=== PATIENT | male | born 1980 | race Caucasian/White ===

== ENCOUNTER 2021-12-15 11:07 | Outpatient (REF) | payer MEDICAID, SELFPAY ==
[2021-12-17 11:36] LABS: COVID-19 RT-PCR UVMMC Result Negative (Negative)
== END 2021-12-15 11:08 | disposition home or self-care (01) ==
LOC: LBN 11:07
PROVIDERS: PCP Nurse Practitioner Family; Visit Provider Physician Assistant Medical
DX: Z20.822 Contact with and (suspected) exposure to COVID-19 (principal); J02.9 Acute pharyngitis, unspecified
CPT/HCPCS: U0003; 87070

== ENCOUNTER 2021-12-30 16:40 | Outpatient (REF) | payer MEDICAID, SELFPAY ==
[2021-12-30 19:34] LABS: ALT 25 U/L (16-63); AST 26 U/L (15-37); Albumin 3.9 g/dL (3.4-5.0); Alkaline Phosphatase 66 U/L (46-116); Anion Gap 6.1 mmol/L (3-11); BUN 19 mg/dL (7-18); Bilirubin, Total 0.5 mg/dL (0.2-1.0); CO2 28.9 mmol/L (21.0-32.0); CREATININE 1.1 mg/dL (0.70-1.30); Calcium 8.9 mg/dL (8.5-10.1); Calculated LDL 76 mg/dL (<100); Chloride 105 mmol/L (98-107); Cholesterol 161 mg/dL (<200); Estimated GFR 86.49 (mL/min/1.73m2); Glucose 97 mg/dL (74-106); HDL Cholesterol 68 mg/dL (40-60); Potassium 4.5 mmol/L (3.5-5.1); Sodium 140 mmol/L (136-145); Total Protein 7.6 g/dL (6.4-8.2); Triglyceride 88 mg/dL (<150)
[2021-12-30 19:52] LABS: Vitamin D 25 Total 20.3 ng/mL (30-100)
== END 2021-12-30 16:41 | disposition home or self-care (01) ==
LOC: NCHCN 16:40
PROVIDERS: PCP Nurse Practitioner Family; Visit Provider Nurse Practitioner Family
DX: Z13.220 Encounter for screening for lipoid disorders (principal); Z13.228 Encounter for screening for other metabolic disorders; Z13.21 Encounter for screening for nutritional disorder
CPT/HCPCS: 80053; 80061; 82306

== ENCOUNTER → 2022-01-09 01:07 | Outpatient (CLI) | payer MEDICAID, SELFPAY ==
--- NOTE | 2022-01-09 14:20 | DI.RAD_ITS ---
Exam(s) XR FOOT LT COMPLETE EXAM: XR FOOT LT COMPLETE CLINICAL HISTORY: LT FOOT PAIN, M79.672, HEEL PAIN, CHECK FOR HEEL SPUR. TECHNIQUE: 2D digital imaging was performed. Three views. COMPARISON: No exams were available for comparison FINDINGS: BONES: No acute fracture is present. No bony destructive lesion is seen. Tiny heel spur. JOINTS: No dislocation present. Minimal degenerative changes talonavicular joint. SOFT TISSUE: Normal. IMPRESSION: Minimal degenerative changes. Tiny heel spur. DATA REPOSITORY: RADIATION DOSE DELIVERED:
== END ==
PROVIDERS: PCP Nurse Practitioner Family; Visit Provider Nurse Practitioner Family
DX: M19.072 Primary osteoarthritis, left ankle and foot (principal)
CPT/HCPCS: 73630

== ENCOUNTER 2022-01-24 09:55 | Emergency (ER) | payer MEDICAID, SELFPAY ==
[2022-01-24 10:02] VITALS: BP 123/85; PULSE 102; RESP 18; TEMP 36.9; O2SAT 98
[2022-01-24] MEDS: Ketorolac 15 MG/ML VIAL IVP (10:29)
[2022-01-24] MEDS: Dexamethasone 10 MG/ML VIAL IVP (10:30)
[2022-01-24 10:32] LABS: Abs Immature Grans 0.02 10^3/uL (0.0-0.06); Absolute Basophil Count 0.04 10^3/uL (0.0-0.2); Absolute Eosinophil Count 0.09 10^3/uL (0.0-0.7); Absolute Lymphocyte Count 0.87 10^3/uL (1.2-3.4); Absolute Monocyte Count 0.55 10^3/uL (0.1-0.8); Absolute Neutrophil Count 5.68 10^3/uL (1.2-6.7); Basophils % 0.6; Eosinophils % 1.2; HCT 46.2 % (40.0-50.0); HGB 16.1 g/dL (13.5-17.5); Immature Grans % 0.3; MCHC 34.8 % (32.0-36.0); MCV 89 fL (80-95); MPV 8.4 fL (8.0-11.0); Monocytes % 7.6; Neutrophils % 78.3; Platelet Count 156 10^3/uL (130-400); RDW 11.4 % (11.8-14.1); RDW-SD 36.5 fL; WBC 7.25 10^3/uL (4.4-10.8)
[2022-01-24 10:43] LABS: Mono Screening Negative (Negative)
--- NOTE | 2022-01-24 10:43 | DI.CT_ITS ---
Exam(s) CT NECK W EXAM: CT NECK W CLINICAL HISTORY: significant edema throat. TECHNIQUE: Imaging Protocol: Axial computed tomography images with coronal and sagittal reformatted images were created and reviewed. CONTRAST MATERIAL: Intravenous: Omnipaque 350 Contrast volume:100mL COMPARISON: No exams were available for comparison FINDINGS: Orbits and orbital soft tissues: Within normal limits. Visualized paranasal sinuses: Within normal limits. Nasopharynx: Within normal limits. Oropharynx and hypopharynx: There is enlargement of the left tonsils. No calcification is identified . No drainable fluid collection is seen. The soft tissue swelling extends inferiorly into the hypop harynx with a face mint of the left piriform sinuses and vallecula. Larynx: Within normal limits. Retropharyngeal space: Within normal limits. Parotids/submandibular: Within normal limits. Thyroid gland: Within normal limits. Lymphadenopathy: There is scattered lymph nodes seen along the level one to level three all measurin g less than 8 mm in short axis diameter which are physiologic in nature. Trachea: There is mild narrowing of the airway at the level of the marlene and hypopharynx secondary to t he enlarged tonsillar tissue. Lung apices: Within normal limits. Bones: Within normal limits for the patient's age. Carotids/Jugular: Within normal limits. Soft tissues: There is mild inflammatory stranding seen in the left neck inferior to the parotid gl and and adjacent to the submandibular gland. No focal fluid collection is seen to suggest an abscess . IMPRESSION: 1. Findings suggestive of a left tonsillitis. No drainable fluid collection is identified. This lópez s result in mild narrowing of the airway. 2. Findings were discussed with Soni Gale at 11:13 a.m. on 01/24/2022. RADIATION DOSE DELIVERED: 881.4mGy.cm Total DLP 881.4mGy.cm Total DLP DATA REPOSITORY: All CT scans at this facility are submitted to the National Radiology Data Registry (NRDR) Dose Index Registry (DIR) with the [employer] (A[employer]). RADIATION OPTIMIZATION: All CT scans at this facility use at least one of these dose optimization te chniques: automated exposure control; mA and/or kV adjustment per patient size (includes targeted exa ms where dose is matched to clinical indication); or iterative reconstruction.
[2022-01-24 10:58] LABS: ALT 23 U/L (16-63); AST 21 U/L (15-37); Albumin 3.9 g/dL (3.4-5.0); Alkaline Phosphatase 84 U/L (46-116); BUN 20 mg/dL (7-18); Bilirubin, Total 1.4 mg/dL (0.2-1.0); Calcium 8.6 mg/dL (8.5-10.1); Chloride 101 mmol/L (98-107); Estimated GFR 96.97 (mL/min/1.73m2); Glucose 111 mg/dL (74-106); Potassium 3.8 mmol/L (3.5-5.1); Sodium 137 mmol/L (136-145)
[2022-01-24] MEDS: Lactated Ringers 1,000 ML 1000 ML IV (11:00)
[2022-01-24] MEDS: Normal Saline - Diluent 50 ML VIAL IV (11:00)
[2022-01-24] MEDS: Omnipaque 350 MG/ML 100 ML BTL IJ (11:00)
--- NOTE | 2022-01-24 11:33 | ED.GENADUL_ITS ---
Discharge Plan Disposition Patient Disposition: Home Condition: Stable Discharge Details Clinical Impression: Acute tonsillitis Primary Care Provider: Deidra Belle ED Provider: Soni Gale Home Meds and New Rx's Prescriptions: New dexamethasone 4 mg tablet 4 mg PO DAILY Qty: 4 0RF Rx Instructions: take daily starting 12/ Continued albuterol sulfate [ProAir HFA] 90 mcg/actuation Hfa Aerosol Inhaler 2 puff INHALATION PRN PRN No Action clindamycin HCl 150 mg capsule 450 mg PO TID 5 Days Qty: 45 0RF Discharge Instructions Additional Instructions: Take steroids as prescribed, take your next dose of steroid tomorrow Take ibuprofen 600 mg every 8 hours with food and Tylenol 650 mg every 4-6 hours Smooth foods and regular fluids to stay hydrated Take clindamycin as prescribed, yogurt daily while on antibiotic I placed you on the ENT list for follow-up, please follow-up with Dr. Quintana if you do not hear from them tomorrow, call to schedule an appointment and return earlier should you have new or worsening complaints Referrals: Deidra Belle [Primary Care Provider] - Ibrahima Quintana MD [ [facility] STAFF PHYSICIAN] - 1 day Discharge Data Discharge Date/Time-TO BE ENTERED AT DEPARTURE: 01/24/22 11:49 Medical Decision Making 41-year-old male with sick significant peritonsillar edema without obvious abscess and patent airway, will order CT soft tissue neck secondary to globus sensation with edema to the peritonsillar region to evaluate for any sort of airway compromise Given Decadron, antibiotics Labs ordered to evaluate for leukocytosis or dehydration, negative for acute abnormality CT soft tissue neck discussed with radiologist, no evidence of obvious airway impingement Patient is feeling marked improvement after steroids and pain medication At this point I think he stable for discharge home, he will need ENT follow-up secondary to recurrent significant tonsillitis Discharged home on antibiotics and steroids Medical Records Medical records reviewed: Yes I reviewed the patient's medical records. Lab Data Lab results reviewed: Yes I reviewed the patient's lab results. Sign Out No HPI General Date/Time Provider Initiated Documentation: 01/24/22 10:06 . HPI Narrative: otherwise healthy 41-year-old male presents with sore throat and difficulty swallowing. Symptoms started last evening. Denies any fever or chills. Denies any allergic reaction signs or symptoms. States he had a similar episode 4 years ago but has not had any issues since that time. This morning felt globus sensation. Was able to maintain secretions per patient. Denies any other respiratory symptoms. Related Data Home Medications Medication Instructions Recorded Confirmed albuterol sulfate 90 mcg/actuation 2 puff inhalation PRN PRN 01/24/22 01/25/22 aerosol inhaler (ProAir HFA) dexamethasone 4 mg tablet 4 mg PO DAILY #4 tabs 01/24/22 01/25/22 clindamycin HCl 150 mg capsule 450 mg PO TID 5 days #45 caps 01/25/22 01/25/22 Previous Rx's Medication Instructions Recorded dexamethasone 4 mg tablet 4 mg PO DAILY #4 tabs 01/24/22 clindamycin HCl 150 mg capsule 450 mg PO TID 5 days #45 caps 01/25/22 Allergies Allergy/AdvReac Type Severity Reaction Status Date / Time No Known Allergies Allergy Unverified 01/25/22 10:30 General Stated Complaint: Sorethroat ANITA: 4 Review of Systems All systems reviewed & are unremarkable except as noted in HPI and below PFSH All Active Problems Acute tonsillitis (Acute) Surgical History (Updated 01/25/22 @ 10:31 by Renetta Madsen RN) Hx of wisdom tooth extraction Social History (Updated 01/25/22 @ 10:32 by Renetta Madsen RN) Smoking/Tobacco Use Status: Former Tobacco Use Smokeless tobacco user: chewing tobacco Smoking risk assessment performed?: Yes Alcohol Intake: current Alcohol Intake frequency: a few times a week Drug use: Never Household members: children 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 Pets and animals: No What is your relationship status?: Panel score (0-1 are the most socially isolated patients): 0 Do you feel safe at home: Yes Do you feel safe in your relationship?: Yes Exam Const General: cooperative, comfortable and no acute distress Orientation: alert and oriented x3 HENMT Other: Uvula midline, significant peritonsillar edema bilaterally without obvious abscess, maintaining secretions Eyes Sclera: sclerae normal Neck Other: No stridor Resp Effort & Inspection: normal respiratory effort Auscultation: clear to auscultation bilaterally Cardio Rate: regular rate Rhythm: regular rhythm Skin General skin exam: no rashes or lesions noted Neuro General: patient alert Course Vital Signs Vital signs: Vital Signs Temperature 36.9 C 01/24/22 10:02 Pulse 102 H 01/24/22 10:02 Respiratory Rate 18 01/24/22 10:02 Blood Pressure 123/85 01/24/22 10:02 Pulse Oximetry 98 01/24/22 10:02 Temperature 36.9 C 01/24/22 10:02 Pulse 102 H 01/24/22 10:02 Respiratory Rate 18 01/24/22 10:02 Respiratory Effort Non-Labored 01/24/22 10:06 Blood Pressure 123/85 01/24/22 10:02 Blood Pressure Position Sitting 01/24/22 10:02 Pulse Oximetry 98 01/24/22 10:02 Oxygen Delivery Method Room Air 01/24/22 10:02 Oxygen Flow Rate 0 01/24/22 10:02 Lab/Test Results Lab/Test Results: 01/24/22 10:00 Pharynx Group A Streptococcus Culture - Pending Laboratory Tests Range/Units 01/24/22 01/24/22 01/24/22 10:25 10:25 10:25 WBC (4.4-10.8) 10^3/uL 7.25 RBC (4.36-5.78) 10^6/uL 5.20 Hgb (13.5-17.5) g/dL 16.1 Hct (40.0-50.0) % 46.2 MCV (80-95) fL 89 MCH (27.0-33.0) pg 31.0 MCHC (32.0-36.0) % 34.8 RDW (11.8-14.1) % 11.4 L Plt Count (130-400) 10^3/uL 156 MPV (8.0-11.0) fL 8.4 Immature Gran % 0.3 Neutrophils % 78.3 Lymphocytes % 12.0 Monocytes % 7.6 Eosinophils % 1.2 Basophils % 0.6 Nucleated RBC % (0.0-0.3) % 0.0 Absolute Neutrophils (1.2-6.7) 10^3/uL 5.68 Absolute Lymphocytes (1.2-3.4) 10^3/uL 0.87 L Absolute Monocytes (0.1-0.8) 10^3/uL 0.55 Absolute Eosinophils (0.0-0.7) 10^3/uL 0.09 Absolute Basophils (0.0-0.2) 10^3/uL 0.04 Sodium (136-145) mmol/L 137 Potassium (3.5-5.1) mmol/L 3.8 Chloride (98-107) mmol/L 101 Carbon Dioxide (21.0-32.0) mmol/L 31.0 Anion Gap (3-11) mmol/L 5.0 BUN (7-18) mg/dL 20 H Creatinine (0.70-1.30) mg/dL 1.0 Est GFR (CKD-EPI 2020) (mL/min/1.73m2) 96.97 Glucose (74-106) mg/dL 111 H Calcium (8.5-10.1) mg/dL 8.6 Total Bilirubin (0.2-1.0) mg/dL 1.4 H AST (15-37) U/L 21 ALT (16-63) U/L 23 Alkaline Phosphatase (46-116) U/L 84 Total Protein (6.4-8.2) g/dL 8.0 Albumin (3.4-5.0) g/dL 3.9 Monoscreen (Negative) Negative POC Strep Test-SHIMON(Rapid) Start: 01/24/22 10:10 Freq: .Rapid Strep Test Status: Active Protocol: Document 01/24/22 10:20 CELSO (Rec: 01/24/22 10:20 CELSO [id number]) Strep test-SHIMON(Rapid)-POC POC-Strep test-SHIMON (Rapid) Negative POC-Strep test-SHIMON (Rapid) Negative
[2022-01-24 11:47] VITALS: BP 131/86; PULSE 85; RESP 16; TEMP 36.7; O2SAT 98
--- NOTE | 2022-01-24 12:11 | NUR.NOTE ---
Nursing Note: Referral faxed to [facility] for tonsillitis within 1 week.
== END 2022-01-24 11:49 | disposition home or self-care (01) ==
PROVIDERS: Emergency Provider Physician Assistant; PCP Nurse Practitioner Family
DX: J03.90 Acute tonsillitis, unspecified (principal)
CPT/HCPCS: 70491; 80053; 87880; 96361; 96374; 96375; 99285; 85025; 86308; 87081; 99284; J1100; J1885; J3490

== ENCOUNTER 2022-10-18 14:28 | Emergency (ER) | payer SELFPAY ==
[2022-10-18 14:32] VITALS: BP 157/108; PULSE 104; RESP 20; TEMP 37; O2SAT 99
--- NOTE | 2022-10-18 15:12 | ED.GENADUL_ITS ---
Discharge Plan Disposition Patient Disposition: Home Condition: Stable Discharge Details Clinical Impression: Spasm of thoracic back muscle Primary Care Provider: Deidra Belle ED Provider: Jaspal Jones Home Meds and New Rx's Prescriptions: New diazepam [Valium] 5 mg tablet 5 mg PO BID PRNQty: 5 0RF Continued albuterol sulfate [ProAir HFA] 90 mcg/actuation Hfa Aerosol Inhaler 2 puff INHALATION PRN PRN Discharge Instructions Instructions: Muscle Spasm (ED) Additional Instructions: Please take ibuprofen over the counter. Take 600mg by mouth every 6 hours as needed for pain. Please take Valium only if needed for muscle spasm. Avoid activities that worsen pain. Please contact your primary care physician to arrange follow-up. Return to the ER immediately for any worsening or new concerning symptoms. Stand Alone Forms: Work Release Referrals: Deidra Belle [Primary Care Provider] - Discharge Data Discharge Date/Time-TO BE ENTERED AT DEPARTURE: 10/18/22 15:56 Medical Decision Making 42-year-old male here with back spasm. Patient hemodynamically stable. Neuro intact. Patient was given Toradol IM, lidocaine patch, and Valium. He was reassessed and symptoms significant improved. Usual customary discharge instructions reviewed the patient. I encouraged him to return immediately for any worsening or new concerning symptoms. HPI General Mode of arrival: ambulatory . Date/Time Provider Initiated Documentation: 10/18/22 14:37 . Limitations to Documentation: no limitations . Information obtained by: patient . HPI Narrative: 42-year-old male presents with chief complaint of back spasm. Patient notes spasm in his right posterior upper back that is severe. Patient notes he has been performing physical work that has resulted in this spasm. He has no associated numbness or tingling. Related Data Home Medications Medication Instructions Recorded Confirmed albuterol sulfate 90 mcg/actuation 2 puff inhalation PRN PRN 01/24/22 10/18/22 aerosol inhaler (ProAir HFA) diazepam 5 mg tablet (Valium) 5 mg PO BID PRN #5 tabs 10/18/22 Previous Rx's Medication Instructions Recorded diazepam 5 mg tablet (Valium) 5 mg PO BID PRN #5 tabs 10/18/22 Allergies Allergy/AdvReac Type Severity Reaction Status Date / Time No Known Allergies Allergy Unverified 10/18/22 14:37 General Stated Complaint: Orthopedic ANITA: 4 Review of Systems Constitutional Constitutional: Denies fever(s) Musculoskeletal Musculoskeletal: Reports as per HPI PFSH All Active Problems (Updated 10/18/22 @ 15:48 by Jaspal Jones MD) Spasm of thoracic back muscle (Acute) Surgical History (Updated 01/25/22 @ 10:31 by Renetta Madsen RN) Hx of wisdom tooth extraction Social History (Updated 01/25/22 @ 10:32 by Renetta Madsen RN) Smoking/Tobacco Use Status: Former Tobacco Use Smokeless tobacco user: chewing tobacco Smoking risk assessment performed?: Yes Alcohol Intake: current Alcohol Intake frequency: a few times a week Drug use: Never Household members: children 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 Pets and animals: No What is your relationship status?: Panel score (0-1 are the most socially isolated patients): 0 Do you feel safe at home: Yes Do you feel safe in your relationship?: Yes Exam Const General: cooperative and no acute distress HENMT Mouth: moist mucous membranes Resp Auscultation: clear to auscultation bilaterally, no rales, no rhonchi and no wheezes Cardio Rate: regular rate and not tachycardic Rhythm: regular rhythm GI Palpation: soft and nontender Back/Spine/Pelvis Back: No warmth, No ecchymosis and back tenderness (Right trapezius) Skin General skin exam: no rashes or lesions noted Neuro General: patient alert, patient awake and tone normal Psych Appearance: grossly normal Mental Status: mental status grossly normal Speech and Movement: speech and movement normal Course Vital Signs Vital signs: Vital Signs Temperature 37.0 C 10/18/22 14:32 Pulse 104 H 10/18/22 14:32 Respiratory Rate 10/18/22 14:32 Blood Pressure 157/108 H 10/18/22 14:32 Pulse Oximetry 99 10/18/22 14:32 Temperature 37.0 C 10/18/22 14:32 Temperature Source Oral 10/18/22 14:32 Pulse 104 H 10/18/22 14:32 Respiratory Rate 20 10/18/22 14:32 Blood Pressure 157/108 H 10/18/22 14:32 Blood Pressure Position Sitting 10/18/22 14:32 Pulse Oximetry 99 10/18/22 14:32 Oxygen Delivery Method Room Air 08/30/23 14:32 Oxygen Flow Rate 0 10/18/22 14:32 Pain Level 7 10/18/22 14:32
[2022-10-18] MEDS: Ketorolac 30 MG/ML VIAL IM (15:37)
[2022-10-18] MEDS: diazePAM 5 MG TAB PO (15:37)
[2022-10-18] MEDS: Lidocaine 5% Patch 1 PATCH TP (15:38)
[2022-10-18 15:55] VITALS: BP 135/107
== END 2022-10-18 15:56 | disposition home or self-care (01) ==
PROVIDERS: Emergency Provider Student in an Organized Health Care Education/Training Program; PCP Nurse Practitioner Family
DX: M62.830 Muscle spasm of back
CPT/HCPCS: 96372; 99284; 99283; J1885

== ENCOUNTER → 2023-02-06 13:01 | Outpatient (CLI) | payer OTHER, SELFPAY ==
--- NOTE | 2023-02-06 12:36 | DI.RAD_ITS ---
Exam(s) XR RIBS LT W PA LAT CHEST EXAM: XR RIBS LT W PA LAT CHEST CLINICAL HISTORY: TRAUMA,FELL,LT SIDED PAIN WITH DEEP INSPIRATION,S20.212A. TECHNIQUE: 2D digital imaging was performed. COMPARISON: No exams were available for comparison FINDINGS: Seven views: There is fracture in the lateral aspect of the left 7th rib. No evidence of lung contusion or pneumothorax and no pleural effusion. Lungs are clear bilaterally. Heart size normal no widening or shift of the mediastinum. IMPRESSION: Minimally displaced left 7th rib fracture. No pulmonary findings. DATA REPOSITORY: RADIATION DOSE DELIVERED:
== END ==
PROVIDERS: PCP Nurse Practitioner Family; Visit Provider Nurse Practitioner Family
DX: S22.32XA Fracture of one rib, left side, initial encounter for closed fracture (principal); X58.XXXA Exposure to other specified factors, initial encounter
CPT/HCPCS: 71046; 71100

== ENCOUNTER → 2023-03-05 16:04 | Outpatient (CLI) | payer OTHER, SELFPAY ==
--- NOTE | 2023-03-05 15:02 | DI.RAD_ITS ---
Exam(s) XR RIBS ONLY LT EXAM: XR RIBS ONLY LT CLINICAL HISTORY: Nondisplaced lt 7th rib fx on x-ray 02/06/23,S22.32XD; reassess for healing. COMPARISON: CR XR RIBS LT W PA LAT CHEST from 02/06/2023 TECHNIQUE: Four views of the ribs were performed. FINDINGS: LUNGS: Clear. No pneumothorax is seen. No infiltrate or effusion. HEART: Normal in size. BONES: No displaced rib fracture is seen. The previously noted distal 7th rib fracture is not visibl e on the current exam. Indicate some healing versus technique.. No bony destructive lesion is seen. The spine is grossly intact. IMPRESSION: No rib fracture is visible.
== END ==
PROVIDERS: PCP Nurse Practitioner Family; Visit Provider Nurse Practitioner Family
DX: S22.32XD Fracture of one rib, left side, subsequent encounter for fracture with routine healing (principal); X58.XXXD Exposure to other specified factors, subsequent encounter
CPT/HCPCS: 71100

== ENCOUNTER → 2023-03-12 19:16 | Outpatient (CLI) | payer OTHER, SELFPAY ==
--- NOTE | 2023-03-12 11:24 | DI.RAD_ITS ---
Exam(s) XR CHEST 2V PA LATERAL EXAM: XR CHEST 2V PA LATERAL CLINICAL HISTORY: RESPIRATORY TRACT INFECTION J98.8 TECHNIQUE: 2D digital imaging was performed. COMPARISON: CR XR RIBS LT W PA LAT CHEST from 02/06/2023 CR XR RIBS ONLY LT from 03/05/2023 FINDINGS: HEART: Normal size. Aorta: Not dilated. PULMONARY VASCULATURE: Normal. LUNGS: Clear. PLEURAL SPACE: No pleural effusion or pneumothorax. BONE:Unremarkable for age. Soft tissues: Unremarkable. IMPRESSION: No acute abnormality. DATA REPOSITORY: RADIATION DOSE DELIVERED:
== END ==
PROVIDERS: PCP Nurse Practitioner Family; Visit Provider Nurse Practitioner Family
DX: J98.8 Other specified respiratory disorders (principal)
CPT/HCPCS: 71046

== ENCOUNTER 2023-03-15 04:46 | Observation (INO) | payer OTHER, SELFPAY ==
[2023-03-15] VITALS (151 sets, daily range): BP systolic 102–177; BP diastolic 56–132; PULSE 89–134; RESP 2–78; TEMP 36.2–38.5; O2SAT 92–99
--- NOTE | 2023-03-15 04:45 | RT.EKG_ITS ---
APPROVED REPORT Exam: Resting ECG Reason for Exam: SOB Patient Location: E HR:116 bpm ECG Measurements Heart Rate 116 AXIS WV 136 P 50 QRSd 99 QRS 1 QT 329 T 37 QTc 458 Conclusion Sinus tachycardia...rate> [address] segment or T wave abnormalities to suggest occluisve CO
--- NOTE | 2023-03-15 05:02 | ED.GENADUL_ITS ---
HPI General Mode of arrival: ambulatory . Date/Time Provider Initiated Documentation: 03/15/23 04:51 . Limitations to Documentation: no limitations . Information obtained by: patient . HPI Narrative: 43yo M with hx of asthma (uses inhaler only when sick), fall 5 weeks ago with left sided rib fractures, presenting for persistent URI symptoms. For last 10 days has had cough, rhinorhea, and sore throat. Febrile for the first several days, now temps 99-100.0F. Cough is bothersome and keeping him awake despite home OTC medications & tessalon pearls. Saw his PCP on Sunday and had a chest xray, repeat appointment scheduled for next Sunday. Presents this morning for concern that his symptoms hae not yet improved. Does have continues left sided rib pain and tenderness especially with coughing. No chills, rash, vomiting, chest pain, abdominal pain, syncope, or other concerns. Related Data Home Medications Medication Instructions Recorded Confirmed albuterol sulfate 90 mcg/actuation 2 puff inhalation PRN PRN 01/24/22 03/15/23 aerosol inhaler (ProAir HFA) benzonatate 100 mg capsule mg PO 03/15/23 Allergies Allergy/AdvReac Type Severity Reaction Status Date / Time No Known Allergies Allergy Unverified 03/15/23 05:03 General Stated Complaint: Chest/Rib ANITA: 3 Review of Systems Narrative: see HPI Exam Narrative Exam Narrative: General: Alert, well appearing, well nourished, in no acute distress. Head: Normocephalic, atraumatic Neck: Trachea midline, ?Neck supple. ENT: ?MMM.? No oropharygeal lesions or exudate. Cardiac: ?RRR, no murmurs appreciated Resp: No respiratory distress. Diffuse expiratory wheezes. Abd: ?Soft, non-distended, nontender : ?No suprapubic tenderness. No CVA tenderness. Extremities: ?No deformities.? No peripheral edema. Neurologic: GCS 15. ? Moves all extremities freely against gravity Course Vital Signs Vital signs: Vital Signs Temperature 36.8 C 03/15/23 04:50 Pulse 120 H 03/15/23 04:50 Respiratory Rate 03/15/23 04:50 Blood Pressure 137/89 03/15/23 04:50 Pulse Oximetry 98 03/15/23 04:50 Temperature 36.8 C 03/15/23 04:50 Pulse 120 H 03/15/23 04:50 Respiratory Rate 24 03/15/23 04:50 Respiratory Effort Normal 03/15/23 04:59 Respiratory Depth Normal 03/15/23 04:59 Respiratory Pattern Tachypnea 03/15/23 04:59 Blood Pressure 137/89 03/15/23 04:50 Blood Pressure Position Supine 03/15/23 04:50 Pulse Oximetry 98 03/15/23 04:50 Oxygen Delivery Method Room Air 03/15/23 04:50 Oxygen Flow Rate 0 03/15/23 04:50 Pain Level 7 03/15/23 04:59 Medical Decision Making 43yo M with hx of asthma (uses inhaler only when sick), fall 5 weeks ago with left sided rib fractures, presenting for persistent URI symptoms. For last 10 days has had cough, rhinorhea, and sore throat. Febrile for the first several days, now temps 99-100.0F. Saw PCP and had CXR on Sunday; repeat appointment schedule for next Sunday. Presents today concerned due to persistence of symptoms. Tachycardia on arrival, vital signs otherwise reassuring, normal O2 sat. Non-toxic on exam; does have diffuse expiratory wheezes. No increased work of breathing. Likely URI and reactive airway, however with rib fractures higher risk for pneumonia. Not overtly septic; will get labs and CXR. Toradol for rib pain, albuterol neb for wheeze. -EKG sinus tachycardia, no St segment or T wave abnormalities to suggest occlusive PA -CXR independently reviewed, no focal pneumonia or pneumothorax on my view, agree with radiology read below. -Labs reviewed as below, CBC reassuring with no leukocytosis or anemia, CMP with no actionable abnormalities, lactate normal. Resp viral swab negative for covid/flu/rsv. D-dimer elevated; CTA for PE ordered. On reassessment borderline hypoxia, sats 90-91% on room air. Positional component, does improve with more upright positioning. He does report his breathing feels much improved after albuterol neb. Will give 1L IVF. Signed out to oncoming physician, plan to followup CTA and clinical course. Disposition pending results. Lab Data Lab results reviewed: Yes I reviewed the patient's lab results. Labs: Laboratory Tests Range/Units 01/25/24 01/25/24 05:10 05:25 WBC (4.4-10.8) 10^3/uL 10.04 RBC (4.36-5.78) 10^6/uL 5.07 Hgb (13.5-17.5) g/dL 14.7 Hct (40.0-50.0) % 43.0 MCV (80-95) fL 85 MCH (27.0-33.0) pg 29.0 MCHC (32.0-36.0) % 34.2 RDW (11.8-14.1) % 11.9 Plt Count (130-400) 10^3/uL MPV (8.0-11.0) fL Immature Gran % 0.6 Neutrophils % 77.8 Lymphocytes % 8.3 Monocytes % 12.5 Eosinophils % 0.4 Basophils % 0.4 Nucleated RBC % (0.0-0.3) % 0.0 Absolute Neutrophils (1.2-6.7) 10^3/uL 7.82 H Absolute Lymphocytes (1.2-3.4) 10^3/uL 0.83 L Absolute Monocytes (0.1-0.8) 10^3/uL 1.25 H Absolute Eosinophils (0.0-0.7) 10^3/uL 0.04 Absolute Basophils (0.0-0.2) 10^3/uL 0.04 D-Dimer (<500) ng/mlFEU 715 H VBG Lactate (0.6-1.4) mmol/L 1.0 Sodium (136-145) mmol/L 138 Potassium (3.5-5.1) mmol/L 4.3 Chloride (98-107) mmol/L 99 Carbon Dioxide (21.0-32.0) mmol/L 29.5 Anion Gap (3-11) mmol/L 9.5 BUN (7-18) mg/dL 14 Creatinine (0.70-1.30) mg/dL 1.0 Est GFR (CKD-EPI 2020) (mL/min/1.73m2) 95.77 Glucose (74-106) mg/dL 123 H Calcium (8.5-10.1) mg/dL 8.6 Total Bilirubin (0.2-1.0) mg/dL 0.8 AST (15-37) U/L 25 ALT (16-63) U/L 16 Alkaline Phosphatase (46-116) U/L 68 Total Protein (6.4-8.2) g/dL 7.2 Albumin (3.4-5.0) g/dL 2.9 L COVID-19 Source Nasopharynx SARS-CoV-2 (PCR) (Negative) Negative Influenza Type A (PCR) (Negative) Negative Influenza Type B (PCR) (Negative) Negative RSV (PCR) (Negative) Negative Quality:SDOH Health Related Social Needs: No Data to Display PFSH Surgical History (Updated 01/25/22 @ 10:31 by Renetta Madsen RN) Hx of wisdom tooth extraction Social History (Updated 01/25/22 @ 10:32 by Renetta Madsen RN) Smoking/Tobacco Use Status: Former Tobacco Use Smokeless tobacco user: chewing tobacco Smoking risk assessment performed?: Yes Alcohol Intake: current Alcohol Intake frequency: a few times a week Drug use: Never Household members: children 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 Rib fractures 5 weeks ago. Tachycardia to 120's, borderline hypoxia 90-91%. Got albuterol, getting IVF. Pending CTA for PE, will need reassessment Last updated by Herminia Escamilla MD at 03/15/23 06:23 Discharge Plan Discharge Details Chief Complaint: Chest/Rib Primary Care Provider: Deidra Belle ED Provider: Herminia Escamilla Home Meds and New Rx's Prescriptions: No Action albuterol sulfate [ProAir HFA] 90 mcg/actuation Hfa Aerosol Inhaler 2 puff INHALATION PRN PRN benzonatate 100 mg capsule PO Patient Comments: TAKE ONE CAPSULE BY MOUTH AT BEDTIME NEEDED
--- NOTE | 2023-03-15 05:15 | DI.RAD_ITS ---
Exam(s) XR PORTABLE CHEST AP EXAM: XR PORTABLE CHEST AP CLINICAL HISTORY: shortness of breath TECHNIQUE: 2D digital imaging was performed of the chest. One image was obtained. An AP view was ob tained. COMPARISON: CR XR CHEST 2V PA LATERAL from 03/12/2023 FINDINGS: MEDIASTINUM: Normal. HEART: Normal. PULMONARY VASCULATURE: Normal. LUNGS: No focal consolidating infiltrates. Improved appearance of the lungs with decrease in the int erstitial infiltrates. PLEURAL SPACE: No pleural effusion or pneumothorax. BONE:Within normal limits for the patient's age. OTHER FINDINGS:Normal. IMPRESSION: Overall improvement in the appearance of the lungs with improved infiltrates. DATA REPOSITORY: RADIATION DOSE DELIVERED:
[2023-03-15] MEDS: Ketorolac 15 MG/ML VIAL IM (05:29)
[2023-03-15] MEDS: Albuterol 2.5 MG/3 ML INH SOLN VIAL UPD (05:29)
[2023-03-15 05:35] LABS: Abs Immature Grans 0.06 10^3/uL (0.0-0.06); Absolute Basophil Count 0.04 10^3/uL (0.0-0.2); Absolute Eosinophil Count 0.04 10^3/uL (0.0-0.7); Absolute Lymphocyte Count 0.83 10^3/uL (1.2-3.4); Absolute Monocyte Count 1.25 10^3/uL (0.1-0.8); Absolute Neutrophil Count 7.82 10^3/uL (1.2-6.7); Basophils % 0.4; Eosinophils % 0.4; HGB 14.7 g/dL (13.5-17.5); Immature Grans % 0.6; Lymphocytes % 8.3; MCHC 34.2 % (32.0-36.0); MCV 85 fL (80-95); Monocytes % 12.5; Neutrophils % 77.8; RBC 5.07 10^6/uL (4.36-5.78); RDW 11.9 % (11.8-14.1); RDW-SD 36.2 fL; WBC 10.04 10^3/uL (4.4-10.8)
[2023-03-15 05:55] LABS: COVID-19 PCR Negative (Negative); Influenza A PCR Negative (Negative); Influenza B PCR Negative (Negative); RSV PCR Negative (Negative)
[2023-03-15 05:55] LABS: ALT 16 U/L (16-63); AST 25 U/L (15-37); Albumin 2.9 g/dL (3.4-5.0); Alkaline Phosphatase 68 U/L (46-116); Anion Gap 9.5 mmol/L (3-11); BUN 14 mg/dL (7-18); Bilirubin, Total 0.8 mg/dL (0.2-1.0); CO2 29.5 mmol/L (21.0-32.0); Calcium 8.6 mg/dL (8.5-10.1); Chloride 99 mmol/L (98-107); Estimated GFR 95.77 (mL/min/1.73m2); Glucose 123 mg/dL (74-106); Potassium 4.3 mmol/L (3.5-5.1); Sodium 138 mmol/L (136-145); Total Protein 7.2 g/dL (6.4-8.2)
[2023-03-15 05:57] LABS: Source Nasopharynx
--- NOTE | 2023-03-15 06:00 | DI.CT_ITS ---
Exam(s) CT CHEST PE CTA EXAM: CT CHEST PE CTA CLINICAL HISTORY: SOB tachycardia elevated dimer. TECHNIQUE: Imaging Protocol: Axial CT angiography was performed with multi-slice acquisition and mu lti-planar and/or 3D reconstructions. CONTRAST MATERIAL: Intravenous: Omnipaque 350 contrast volume:100 mL COMPARISON: CT CT NECK W from 01/24/2022 CR XR RIBS ONLY LT from 03/05/2023 CR,XR XR PORTABLE CHEST AP from 03/15/2023 FINDINGS: The examination is limited due to patient motion artifact. Tracheobronchial tree: Patent where visualized. Pulmonary parenchyma: There is a multifocal bilateral reticular nodular infiltrate present. No archi tectural distortion. Pulmonary Arteries: Evaluation limited by patient motion artifact particularly involving the peripher al pulmonary arteries. No pulmonary on emboli are identified. Mediastinum and Joi: Mildly enlarged mediastinal lymph nodes. The largest is in the right paratrach eal region and measures 1.5 cm. These are likely reactive. The esophagus is unremarkable. Visualized thyroid gland: Unremarkable. Pleura: No effusion or pneumothorax. Heart: The heart is not dilated. No coronary artery calcifications are seen. No pericardial effusion. Aorta: Thoracic aorta non-dilated. No evidence of dissection. Upper abdomen: Unremarkable. Soft tissues: Unremarkable. Bones: Within normal limits for the patient's age.There are subacute/healing nondisplaced fractures i nvolving the anterior aspects of the left 3rd through 6th ribs. IMPRESSION: 1. No evidence of pulmonary embolism, thoracic aortic dissection or aneurysm. 2. Multifocal pneumonia. 3. Healing nondisplaced fractures of the anterior aspects of the left 3rd through 6th ribs. 4. Findings were discussed with Dr. Weldon at 8:06 a.m. on 03/15/2023. RADIATION DOSE DELIVERED: 637.63mGy.cm Total DLP DATA REPOSITORY: All CT scans at this facility are submitted to the National Radiology Data Registry (NRDR) Dose Index Registry (DIR) with the [employer] (ACR). RADIATION OPTIMIZATION: All CT scans at this facility use at least one of these dose optimization te chniques: automated exposure control; mA and/or kV adjustment per patient size (includes targeted exa ms where dose is matched to clinical indication); or iterative reconstruction.
[2023-03-15 06:03] LABS: D-Dimer 715 ng/mlFEU (<500)
[2023-03-15] MEDS: Normal Saline 1,000 ML 1000 ML IV (06:18)
--- NOTE | 2023-03-15 06:56 | DI.VRAD_ITS ---
PROCEDURE INFORMATION: Exam: XR Chest Exam date and time: 03/15/2023 5:25 AM Age: 43 years old Clinical indication: Shortness of breath TECHNIQUE: Imaging protocol: Radiologic exam of the chest. Views: 1 view. COMPARISON: CR XR CHEST 2V PA LATERAL 03/12/2023 11:17 AM FINDINGS: Lungs: Diffuse increased interstitial markings. Slight interval improvement of aeration of the right lung base Pleural spaces: Unremarkable. No pleural effusion. No pneumothorax. Heart/Mediastinum: Cardiac silhouette unchanged Bones/joints: Unremarkable. IMPRESSION: Slight interval improvement of aeration of the right lung base Dictated and Authenticated by: Jimena Mcneil MD. Ordering:BRYN Hope MD
[2023-03-15] MEDS: Omnipaque 350 MG/ML 500 ML BTL-Imaging package 100 ML IJ (07:50)
--- NOTE | 2023-03-15 08:26 | W.EDPROG ---
Date of service: 03/15/23 Time of Service: 08:26 Medical Decision Making Care was signed out by Dr. Escamilla, please see her documentation regarding initial ED presentation and course. Plan at signout was to follow-up on CT of the chest. CT of the chest interpreted by radiology: Healing left rib fractures numbers 3-6. No pulmonary embolism. Multifocal pneumonia. Patient reassessed and remains tachycardic despite IVF bolus. His oxygenation has improved to 95% on room air after neb treatments. Given persistent tachycardia, rib fractures, multifocal pneumonia, and asthma, plan to admit for IV antibiotics. I will initiate treatment with ceftriaxone and doxycycline IV. Quality:[facility] Health Related Social Needs: No Data to Display Sign Out Sign Out Data: Sign Out Comment: 43yo M, 10 days of URI symptoms. Rib fractures 5 weeks ago. Tachycardia to 120's, borderline hypoxia 90-91%. Got albuterol, getting IVF. Pending CTA for PE, will need reassessment Last updated by Herminia Escamilla MD at 03/15/23 06:23 Discharge Plan Disposition Condition: Good Discharge Details Chief Complaint: Chest/Rib Admit Date/Time: 03/15/23 09:44 Admit Provider: Pepito Jj Attending Provider: Pepito Jj Primary Care Provider: Deidra Belle ED Provider: Jaspal Jones Discharge Instructions Activity:: Activity as Tolerated Equipment/Supplies:: No Equipment Needed Diet:: Normal Diet Discharge Orders Discharge Orders: Discharge Order (Routine); Ordered 03/16/23 Ordered By: Pepito Jj Discharge Data Discharge Date/Time-TO BE ENTERED AT DEPARTURE: 03/15/23 15:13
[2023-03-15] MEDS: cefTRIAXone 1 GM/50 ML BAG IVPB (08:49)
[2023-03-15] MEDS: DOXYCYCLINE 100 MG in Normal Saline 100 ML IVPB (08:49)
[2023-03-15] MEDS: Normal Saline 1,000 ML 150 ML IV (08:50)
--- NOTE | 2023-03-15 09:12 | NUR.NOTE ---
pt provided with breakfast meal tray Nursing Note:
--- NOTE | 2023-03-15 13:11 | NUR.NOTE ---
lunch tray ordered for patient Nursing Note:
[2023-03-15] MEDS: Albuterol/Ipratropium 3 ML UPD VIAL UPD ×2 (16:04→20:43)
[2023-03-15] MEDS: guaiFENesin 600 MG TABCR PO (16:54)
[2023-03-15] MEDS: Esomeprazole 40 MG CAPCR PO (16:54)
[2023-03-15] MEDS: Ibuprofen 600 MG TAB PO ×2 (16:54→19:56)
[2023-03-15] MEDS: Benzonatate 200 MG CAP PO ×2 (16:55→19:56)
--- NOTE | 2023-03-15 17:05 | HPE_ITS ---
Date of service: 03/15/23 Time of Service: 17:05 Assessment and Plan Assessment and plan (1) Community acquired pneumonia of both lungs: Status: Acute Assessment and plan: Continue Rocephin 1 g IV every 24 hours, switch doxycycline oral 100 mg twice daily, continue DuoNeb treatments but increase frequency to every 4 hours while awake along with albuterol every 2 hours as needed, encourage cough and deep breathing with use of incentive spirometer and Acapella device. Provide Mucinex to help thin his secretions and Tessalon Perles to suppress paroxysms of coughing. Will obtain sputum culture as well as urine for strep antigen and urine Legionella and sputum for mycoplasma. Will use low flow nasal oxygen as needed to maintain oxygen saturation above 92%. Given his persistent bronchospasm and history of asthma will initiate steroids with IV Solu-Medrol tonight and then prednisone 40 mg daily. I put him on some GI protection with Nexium (2) Asthma: Status: Chronic Assessment and plan: As above Qualifiers: Asthma severity: mild Asthma persistence: intermittent Asthma complication type: uncomplicated Qualified Code(s): J45.20 - Mild intermittent asthma, uncomplicated (3) Multiple fractures of ribs, left side, subsequent encounter for fracture with delayed healing: Status: Acute Assessment and plan: I have put him on scheduled doses of ibuprofen to help with rib pain we will also add a Lidoderm also add a Lidoderm patch (4) DVT prophylaxis: Status: Acute Assessment and plan: Enoxaparin SC History of Present Illness History of Present Illness Chief Complaint: cough, fever, dyspnea Narrative: 43-year-old white male non-smoker with a history of asthma who has not had a history of uncontrolled asthma. As he department today with 10-day history of worsening cough that is now become productive of purulent yellow sputum over the last 3 days associated with fever and chills. Patient relates that his problems began on February 06 when he had a fall at work and sustained rib fractures on his left chest. 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 He had been given an IS and NSAIDs but over the past 10 days to two weeks has had a cough that has become progressively worse and now has fever and purulent sputum. He saw his PCP in [facility] on Sunday and was ordered a CXR which he obtained on 03/12 and this was read as not showing any acute abnormality. As his symptoms got worse this week he presented to the emergency dept this morning for evaluation. He was noted be acutely wheezing but he was not hypoxemic (SPO2 98% on room air on arrival to the ED at 04:50 am today. However, he reportedly became mildly hypoxemic info that was relayed to me by Dr. Jones but did improve w/ nebulizer treatments. Repeat CXR and a chest CTA was done which showed multifocal pneumona but no PE. Patient was started on iv Ceftriaxone 1 gm and doxycycline 100 mg IV and given DuoNeb treatments x one treatment. I have been asked by Dr. Jones to admit the patient out of his concern that patient is at risk for decompensation d/t his asthma and rib fractures causing him to splint and not provide adequate pulmonary toiletry. Patient will be admitted on observation status while he gets frequent DuoNeb treatments, steroids and parenteral antibiotics. Review of Systems All systems reviewed & are unremarkable except as noted in HPI and below PFSH All Active Problems (Updated 03/15/23 @ 17:51 by Pepito Jj MD) DVT prophylaxis (Acute) Multiple fractures of ribs, left side, subsequent encounter for fracture with delayed healing (Acute) Community acquired pneumonia of both lungs (Acute) Asthma (Chronic) Surgical History (Updated 03/15/23 @ 17:45 by Pepito Jj MD) History of laser photocoagulation of retina treatment of retinal detachment Hx of wisdom tooth extraction Social History Smoking/Tobacco Use Status: Former Tobacco Use Smokeless tobacco user: chewing tobacco Smoking risk assessment performed?: Yes Alcohol Intake: current Alcohol Intake frequency: a few times a week Drug use: Never Household members: children Housing: apartment 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) who is alert and orient x 3 in no acute distress. He is able to talk to me in complete paragraphs without dyspnea. He is nondiaphoretic. HEENT is unremarkable Neck is supple nontender no JVD normal carotid pulses no bruits no thyromegaly no adenopathy Lungs diffuse scattered bilateral expiratory wheezes anteriorly and posteriorly Heart is regular rate and rhythm Abdomen obese soft and nontender Lower extremities without peripheral cyanosis or edema Neuro exam grossly intact no focal motor deficits. Results Labs 03/15/23 05:25 03/15/23 05:25 Labs: Laboratory Results - last 24 hr 03/15/23 03/15/23 05:10 05:25 WBC 10.04 RBC 5.07 Hgb 14.7 Hct 43.0 MCV 85 MCH 29.0 MCHC 34.2 RDW 11.9 Plt Count MPV Immature Gran % 0.6 Neutrophils % 77.8 Lymphocytes % 8.3 Monocytes % 12.5 Eosinophils % 0.4 Basophils % 0.4 Nucleated RBC % 0.0 Absolute Neutrophils 7.82 H Absolute Lymphocytes 0.83 L Absolute Monocytes 1.25 H Absolute Eosinophils 0.04 Absolute Basophils 0.04 D-Dimer 715 H VBG Lactate 1.0 Sodium 138 Potassium 4.3 Chloride 99 Carbon Dioxide 29.5 Anion Gap 9.5 BUN 14 Creatinine 1.0 Est GFR (CKD-EPI 2020) 95.77 Glucose 123 H Calcium 8.6 Total Bilirubin 0.8 AST 25 ALT 16 Alkaline Phosphatase 68 Total Protein 7.2 Albumin 2.9 L COVID-19 Source Nasopharynx SARS-CoV-2 (PCR) Negative Influenza Type A (PCR) Negative Influenza Type B (PCR) Negative RSV (PCR) Negative Last Vital Signs Temp 38.5 C H 03/15/23 16:54 Pulse 115 H 03/15/23 16:08 Resp 20 03/15/23 16:04 BP 129/89 03/15/23 15:19 Pulse Ox 92 03/15/23 16:04 Time Spent Time spent with Patient: 40-54 minutes Time was spent: preparing to see the patient(eg.review tests), obtaining and/or reviewing separately otained hiistory, ordering medications,tests, procedures, referring, communicating with other health interior plant caretaker, indepentently interpreting results, counseling the patient and care coordination
[2023-03-15] MEDS: Doxycycline Hyclate 100 MG CAP PO (19:56)
[2023-03-15] MEDS: methylPREDNISolone SUCC 125 MG VIAL IVP (19:57)
[2023-03-15] MEDS: Normal Saline Flush 10 ML SYR IVP (19:57)
[2023-03-15] MEDS: Lidocaine 5% Patch 2 PATCH TP (19:58)
[2023-03-15 20:39] LABS: Platelet Count 302 10^3/uL (130-400)
[2023-03-15] MEDS: Enoxaparin 40 MG/0.4 ML SYR SC (21:12)
[2023-03-16] MEDS: Acetaminophen 325 MG TAB PO (03:00)
[2023-03-16 04:16] VITALS: PULSE 105; RESP 20; O2SAT 94
[2023-03-16] MEDS: Lidocaine Patch Removal 2 EACH TP (06:19)
[2023-03-16 06:20] VITALS: BP 127/87; PULSE 111; RESP 20; TEMP 36; O2SAT 98
[2023-03-16] MEDS: cefTRIAXone 1 GM/50 ML BAG IVPB (06:47)
[2023-03-16] MEDS: Esomeprazole 40 MG CAPCR PO (07:36)
[2023-03-16] MEDS: Normal Saline Flush 10 ML SYR IVP (07:37)
[2023-03-16] MEDS: Enoxaparin 40 MG/0.4 ML SYR SC (07:37)
[2023-03-16] MEDS: Doxycycline Hyclate 100 MG CAP PO (07:39)
[2023-03-16] MEDS: Benzonatate 200 MG CAP PO ×2 (07:40→13:32)
[2023-03-16] MEDS: Ibuprofen 600 MG TAB PO ×2 (07:40→11:15)
[2023-03-16] MEDS: guaiFENesin 600 MG TABCR PO (07:40)
[2023-03-16] MEDS: predniSONE 20 MG TAB 40 MG PO (07:42)
[2023-03-16 09:00] VITALS: PULSE 104; RESP 16; RESP 9; O2SAT 92
[2023-03-16] MEDS: Albuterol/Ipratropium 3 ML UPD VIAL UPD (09:00)
[2023-03-16 09:07] VITALS: PULSE 105
--- NOTE | 2023-03-16 13:12 | DSE_ITS ---
Date of service: 03/16/23 Time of Service: 13:13 DS: Diagnosis Discharge Diagnosis (1) Community acquired pneumonia of both lungs: Status: Acute Asessment and Plan: See H&P for details and see discharge plan below regarding follow-up. (2) Asthma: Status: Chronic (3) Multiple fractures of ribs, left side, subsequent encounter for fracture with delayed healing: Status: Acute Discharge Plan Disposition Patient Disposition: Home Condition: Good Discharge Details Reason For Visit: community aquired pneumonia, multifocal Admit Date/Time: 03/15/23 09:44 Admit Provider: Pepito Jj Attending Provider: Pepito Jj Primary Care Provider: Deidra Belle Hospital Course Hospital Course: This 43-year-old male non-smoker with a history of asthma was admitted with community-acquired pneumonia secondary to complications from multiple rib fractures sustained in a fall occurring 5 weeks ago. Current symptoms include increasing cough over the last 10 days along with fever and productive sputum over the last 3 days and chills. Outpatient chest x-ray did not show any pneumonic consolidation this was performed 3 days prior to his current admis marilee.However chest x-ray on admission suggested overall improvement in the appearance of his lungs with improvement in his infiltrates even though infiltrates were not read on his original chest x-ray from 03/12/2023. CT of his chest was performed on admission showed no pulmonary emboli and no thoracic aortic aneurysm or dissection but he has multifocal pneumonia and healing nondisplaced fractures of the anterior left third through sixth ribs. Although the patient was not hypoxic on evaluation emergency department overnight observation was advised by the ED provider. Patient was started on IV Solu- Medrol and given Rocephin and doxycycline. The next morning he was started on prednisone and will be switched to 5-day course of Levaquin. He will be discharged home to follow-up with his primary care provider next week he should complete 5 days of Levaquin 750 mg daily and prednisone 40 mg daily for 5 days. A new prescription for an albuterol inhaler was written. He should use albutero l 2 puffs every 4 hours while awake as needed for cough or dyspnea. He was also given a short-term prescription for tramadol 50 mg 4 times daily as needed chest wall pain. Repeat chest x-ray has been ordered to be done in 2 weeks. Home Meds and New Rx's Prescriptions: New tramadol 50 mg tablet 50 mg PO Q6H PRNQty: 20 0RF levofloxacin 750 mg tablet 750 mg PO DAILY 5 Days Qty: 5 0RF prednisone 20 mg tablet 40 mg PO DAILY 5 Days Qty: 10 0RF guaifenesin [Mucinex] 600 mg tablet extended release 12hr 600 mg PO BID 5 Days Qty: 10 0RF benzonatate 200 mg capsule 200 mg PO TID PRNQty: 15 0RF Changed albuterol sulfate [ProAir HFA] 90 mcg/actuation Hfa Aerosol Inhaler 2 puff INHALATION Q4H PRN PRNQty: 8.5 0RF Discharge Instructions Instructions: Levofloxacin (By mouth), Bacterial Pneumonia (DC) Stand Alone Forms: NEGATIVE COVID-19 SCREENING Referrals: Deidra Belle [Primary Care Provider] - 03/19/23 9:50 am (needs follow up in the next week, recommend follow up chest xray in 2 to 3 weeks) Activity:: Activity as Tolerated Equipment/Supplies:: No Equipment Needed Diet:: Normal Diet Discharge Orders Discharge Orders: Discharge Order (Routine); Ordered 03/16/23 Ordered By: Pepito Jj Other Ambulatory Orders: XR chest 2V PA & lateral (Routine) Timeframe: 2 Weeks Facility: [facility] - Location: DIAGNOSTIC IMAGING DEPT Ordered By: Pepito Jj DS: Summary Time Spent with Patient providing and/or coordinating discharge services: Less than 30 minutes Specific discharge activities: Interview/exam of patient; review of discharge instructions, completion of prescriptions/discharge instructions; discussion w/ nursing and CM; documentation of hospital visit Status at Discharge Functional status at discharge: independent ambulation Overall status at discharge: patient is back to baseline Mental Status: mental status grossly normal Speech and Movement: speech and movement normal Mood: congruent mood Affect: normal affect Quality:SDOH Health Related Social Needs: No Data to Display Exam Narrative Exam Narrative: Albert states he feels 100% better. Not short of breath. Cough is improved. Minimal sputum production. Chest wall pain is much better. Lungs are much improved he just has some faint end expiratory wheezes no rhonchi or rales he is moving air much better. Heart is regular rate and rhythm Extremities without edema Psych Mental Status: mental status grossly normal Speech and Movement: speech and movement normal Mood: congruent mood Affect: normal affect DS: Data Vitals/I&O Vitals and I&O: Vital Signs Temperature 36.0 C L 03/16/23 06:20 Temperature Source Tympanic 03/16/23 06:20 Pulse 105 H 03/16/23 09:07 Pulse Rhythm Regular 03/15/23 22:08 Pulse 120 H 03/15/23 15:01 Respiratory Rate 16 03/16/23 09:00 Respiratory Effort Normal, Non-Labored 03/15/23 22:08 Respiratory Depth Normal 03/15/23 22:08 Respiratory Pattern Normal 03/15/23 22:08 Blood Pressure 127/87 03/16/23 06:20 Blood Pressure Mean 116 03/15/23 15:01 Blood Pressure Position Supine 03/15/23 04:50 Pulse Oximetry 92 03/16/23 09:00 Oxygen Delivery Method Room Air 03/16/23 09:00 Oxygen Flow Rate 0 03/16/23 09:00 Pain Level 2 03/16/23 07:40 Comment pt denied pain at this time 03/16/23 06:20 Intake & Output 03/15/23 03/16/23 03/16/23 23:59 11:59 23:59 Intake Total 240 / 1390 300 / 300 Output Total 0 / 0 Balance 240 / 1390 300 / 300 Weight 120.293 kg Intake: Oral 240 / 240 300 / 300 Output: Urine 0 / 0 Stool 0 / 0 Other: Urine Color Yellow Urine Appearance Clear Voiding Methods Toilet Data Completed and Pending Labs on day of discharge: Labs from last 24 hours 03/15/23 03/15/23 03/15/23 20:30 19:17 15:54 Plt Count 302 Urine Legionella Ag Pending M. pneumoniae Source Pending M. pneumoniae (PCR) Pending Ur Strep pneumoniae Ag Pending Preliminary micro results at discharge 03/15/23 15:54 Sputum Culture - Preliminary Sputum Normal Deana PFSH All Active Problems DVT prophylaxis (Acute) Multiple fractures of ribs, left side, subsequent encounter for fracture with delayed healing (Acute) Community acquired pneumonia of both lungs (Acute) Asthma (Chronic) Surgical History History of laser photocoagulation of retina treatment of retinal detachment Hx of wisdom tooth extraction Social History Smoking/Tobacco Use Status: Former Tobacco Use Smokeless tobacco user: chewing tobacco Smoking risk assessment performed?: Yes Alcohol Intake: current Alcohol Intake frequency: a few times a week Drug use: Never Household members: children Housing: apartment 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
--- NOTE | 2023-03-16 13:16 | INITIAL_ITS ---
Date of service: 03/16/23 Time of Service: 13:16 Care Management Initial Assmt Initial Assessment REASON FOR HOSPITALIZATION:: community acquired pneumonia PREVIOUS FUNCTIONAL STATUS/SOCIAL/FAMILY SUPPORTS:: Albert lives in [place] with his ten year old son. 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 He is independent at baseline. CURRENT FUNCTIONAL STATUS:: Albert was sitting up in bed when CM met with him. He stated that he spoke with the MD, who stated that he is medically cleared for discharge. Albert is happy about this and is looking forward to going home. He stated that his son is at his grandparent's house, and he will be happy to be home with his dad later today. Albert stated that he is grateful that he recently obtained health insurance, although he has a past due bill from when he did not have insurance. CM informed him of [facility]'s patient assistance program; he stated that he already has the application and will turn it in soon. He did not identify any additional needs. CM will continue to follow. ADVANCE DIRECTIVES:: Not on file; CM will offer forms. Has patient been provided with info about the portal/API?: Yes Did the patient sign up for the portal?: No CODE STATUS:: Full Code INSURANCE COVERAGE / FINANCIAL ISSUES:: [employer] CURRENT HOME/COMMUNITY SERVICES/EQUIPMENT:: None. PRIMARY CARE PHYSICIAN:: Deidra Belle POTENTIAL DISCHARGE NEEDS:: Evaluations for further needs, follow up appointments. PATIENT/FAMILY EDUCATION NEEDS:: Review discharge instructions and limitations, discussion of self care needs including ask me three. ANTICIPATED BARRIERS TO DISCHARGE:: None. TRANSPORTATION:: Via private vehicle by a friend. PLAN:: Anticipate Albert will return home with no new services. His friend will drive him home via private vehicle. He will follow up with his PCP and discharge plan of care. CM will continue to follow. PFSH All Active Problems DVT prophylaxis (Acute) Multiple fractures of ribs, left side, subsequent encounter for fracture with delayed healing (Acute) Community acquired pneumonia of both lungs (Acute) Asthma (Chronic) Surgical History History of laser photocoagulation of retina treatment of retinal detachment Hx of wisdom tooth extraction Social History Smoking/Tobacco Use Status: Former Tobacco Use Smokeless tobacco user: chewing tobacco Smoking risk assessment performed?: Yes Alcohol Intake: current Alcohol Intake frequency: a few times a week Drug use: Never Household members: children Housing: apartment 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 Pets and animals: No What is your relationship status?: Panel score (0-1 are the most socially isolated patients): 0 Do you feel safe at home: Yes Do you feel safe in your relationship?: Yes SDOH(Care Management) Screening Will the Patient Participate in the Screening?: Yes Do you worry about having a steady place to live?: no In the past 12 months, have you had to go without electric, gas, oil or water in your home?: no Have you or anyone in your house had to go without enough food to eat?: no Has lack of transportation kept you from medical appointments or from doing things needed for daily living?: no Has anyone in your support network made you feel unsafe for any reason?: no
--- NOTE | 2023-03-16 13:39 | PDOC.CMDIS ---
Date of service: 03/16/23 Time of Service: 13:39 LACE Index Scoring Tool Questions: Length of Stay (in days): 1 Was the patient admitted via the E.D.?: Yes E.D. Visits: 1 Answers: Total Score: 5 Risk of Readmission: Low Risk Care Management Discharge Plan Reason for Hospitalization: community acquired pneumonia Discharge Plan: Albert will return home today with no new services. His friend will drive him home via private vehicle. He will follow up with his PCP and discharge plan of care. He is happy to be going home. Patient/Family Education Needs: Review discharge instructions and limitations, discussion of self care needs including ask me three. SDOH Health Related Social Needs: No Data to Display
[2023-03-16 17:33] LABS: Legionella Ag Detection Urine Negative (Negative)
[2023-03-19 15:32] LABS: Streptococcus Pneumoniae Ag, U Negative (Negative)
[2023-03-20 16:48] LABS: Mycoplasma Pneumoniae PCR Negative (Negative); Specimen source Sputum
== END 2023-03-16 14:27 | disposition home or self-care (01) ==
LOC: ER 07:53 → MS 15:14
PROVIDERS: Student in an Organized Health Care Education/Training Program; Admitting Provider Internal Medicine; Emergency Provider Student in an Organized Health Care Education/Training Program; PCP Nurse Practitioner Family; Visit Provider Internal Medicine
DX: J18.9 Pneumonia, unspecified organism (principal); J45.20 Mild intermittent asthma, uncomplicated; R09.02 Hypoxemia; S22.42XG Multiple fractures of ribs, left side, subsequent encounter for fracture with delayed healing; W18.39XD Other fall on same level, subsequent encounter; E66.9 Obesity, unspecified; Z68.41 Body mass index [BMI] 40.0-44.9, adult
CPT/HCPCS: 00123; 36415; 71275; 80053; 87449; 87637; 93005; 96361; 96365; 96368; 96372; 96375; 99285; J1650; 71045; 83605; 85025; 85049; 85379; 87070; 87205; 87581; 87899; 93010; 94640; 94667; 94668; 94760; 99221; 99238; G0378; J0696; J1885; J2930; J3490; J7512; J7613; J7620

== ENCOUNTER → 2023-03-26 01:40 | Outpatient (CLI) | payer OTHER, SELFPAY ==
--- NOTE | 2023-03-26 09:10 | DI.RAD_ITS ---
Exam(s) XR CHEST 2V PA LATERAL EXAM: XR CHEST 2V PA LATERAL CLINICAL HISTORY: f/u pneumonia,J18.9. TECHNIQUE: 2D digital imaging was performed. COMPARISON: CR XR RIBS ONLY LT from 03/05/2023 CR XR CHEST 2V PA LATERAL from 03/12/2023 CR,XR XR PORTABLE CHEST AP from 03/15/2023 FINDINGS: 2 views: Heart size is normal. The mediastinum is not widened. Less than optimal inspiratory effort. However, there are no obvious infiltrates on the present study and there are no pleural effusions. No pulmonary edema. No pneumothorax in this patient who apparently had a recent left 7th rib fractur e. IMPRESSION: No acute pulmonary findings. DATA REPOSITORY: RADIATION DOSE DELIVERED:
== END ==
PROVIDERS: PCP Nurse Practitioner Family; Visit Provider Internal Medicine
DX: J18.9 Pneumonia, unspecified organism (principal)
CPT/HCPCS: 71046

== ENCOUNTER 2023-11-15 13:06 | Outpatient (CLI) | payer OTHER, SELFPAY ==
--- NOTE | 2023-11-15 12:15 | DI.US_ITS ---
Exam(s) US LOWER EXTREMITY VENOUS LT EXAM: US LOWER EXTREMITY VENOUS LT CLINICAL HISTORY: left leg swelling, M79.89 TECHNIQUE: Left lower extremity venous ultrasound performed using grayscale, color-flow, and spectra l Doppler analysis. COMPARISON: No exams were available for comparison FINDINGS: The left common femoral, femoral and popliteal veins demonstrate normal compressibility, augmentation , and color Doppler. The posterior tibial veins are patent. The saphenofemoral junction is unremarka ble. There is no evidence of a Olivares cyst. The soft tissues are unremarkable. IMPRESSION: No evidence of a left lower extremity DVT. DATA REPOSITORY:
--- NOTE | 2023-11-15 12:55 | DI.RAD_ITS ---
Exam(s) XR CHEST 2V PA LATERAL EXAM: XR CHEST 2V PA LATERAL CLINICAL HISTORY: leg swelling ? rales on exam please evaluate, M79.89 TECHNIQUE: 2D digital imaging was performed of the chest. Two images were obtained. PA and lateral views were obtained. COMPARISON: CR XR CHEST 2V PA LATERAL from 03/26/2023 FINDINGS: MEDIASTINUM: Normal. HEART: Normal. PULMONARY VASCULATURE: Normal. LUNGS: Clear. PLEURAL SPACE: No pleural effusion or pneumothorax. BONE:Within normal limits for the patient's age. OTHER FINDINGS:Normal. IMPRESSION: No acute pulmonary findings. DATA REPOSITORY: RADIATION DOSE DELIVERED:
== END 2023-11-15 13:26 ==
LOC: DI 13:06
PROVIDERS: PCP Nurse Practitioner Family; Visit Provider Physician Assistant
DX: M79.89 Other specified soft tissue disorders (principal)
CPT/HCPCS: 71046; 93971

== ENCOUNTER 2023-11-19 03:29 | Outpatient (CLI) | payer OTHER, SELFPAY ==
[2023-11-19 11:48] LABS: Abs Immature Grans 0.02 10^3/uL (0.0-0.06); Absolute Basophil Count 0.04 10^3/uL (0.0-0.2); Absolute Eosinophil Count 0.13 10^3/uL (0.0-0.7); Absolute Lymphocyte Count 1.09 10^3/uL (1.2-3.4); Absolute Monocyte Count 0.49 10^3/uL (0.1-0.8); Absolute Neutrophil Count 3.81 10^3/uL (1.2-6.7); Basophils % 0.7 %; Eosinophils % 2.3 %; HCT 47.5 % (40.0-50.0); HGB 15.8 g/dL (13.5-17.5); Immature Grans % 0.4 %; Lymphocytes % 19.5 %; MCH 29.9 pg (27.0-33.0); MCHC 33.3 % (32.0-36.0); MCV 90 fL (80-95); MPV 8.7 fL (8.0-11.0); Monocytes % 8.8 %; Neutrophils % 68.3 %; Platelet Count 188 10^3/uL (130-400); RBC 5.29 10^6/uL (4.36-5.78); RDW 11.9 % (11.8-14.1); RDW-SD 39.6 fL; WBC 5.58 10^3/uL (4.4-10.8)
[2023-11-19 13:05] LABS: ALT 22 U/L (16-63); AST 14 U/L (15-37); Albumin 3.8 g/dL (3.4-5.0); Alkaline Phosphatase 76 U/L (46-116); Anion Gap 7.4 mmol/L (3-11); BUN 19 mg/dL (7-18); Bilirubin, Total 0.59 mg/dL (0.2-1.0); CO2 28.6 mmol/L (21.0-32.0); Chloride 101 mmol/L (98-107); Estimated GFR 95.77 (mL/min/1.73m2); Glucose 97 mg/dL (74-106); NT-proBNP 40 pg/mL (<300); Potassium 4.4 mmol/L (3.5-5.1); Sodium 137 mmol/L (136-145); Total Protein 7.8 g/dL (6.4-8.2)
== END 2023-11-19 03:30 | disposition home or self-care (01) ==
LOC: LBO 03:29
PROVIDERS: PCP Nurse Practitioner Family; Visit Provider Physician Assistant
DX: M79.89 Other specified soft tissue disorders (principal)
CPT/HCPCS: 36415; 80053; 83880; 85025

== ENCOUNTER 2024-01-25 14:52 | Outpatient (REF) | payer BC, SELFPAY ==
[2024-01-25 16:22] LABS: ALT 34 U/L (16-63); AST 23 U/L (15-37); Albumin 3.8 g/dL (3.4-5.0); Alkaline Phosphatase 77 U/L (46-116); Anion Gap 9.1 mmol/L (3-11); BUN 16 mg/dL (7-18); Bilirubin, Total 0.49 mg/dL (0.2-1.0); CO2 27.9 mmol/L (21.0-32.0); CREATININE 0.9 mg/dL (0.70-1.30); Calcium 8.7 mg/dL (8.5-10.1); Chloride 106 mmol/L (98-107); Estimated GFR 108.68 (mL/min/1.73m2); Glucose 99 mg/dL (74-106); Potassium 4.3 mmol/L (3.5-5.1); Sodium 143 mmol/L (136-145); TSH 1.99 uIU/mL (0.36-3.74); Total Protein 7.1 g/dL (6.4-8.2)
[2024-01-25 16:29] LABS: Prothrombin Time 9.7 sec (9.1-11.1)
== END 2024-01-25 14:53 | disposition home or self-care (01) ==
LOC: NCHCN 14:52
PROVIDERS: PCP Nurse Practitioner Family; Visit Provider Nurse Practitioner Family
DX: R60.0 Localized edema (principal)
CPT/HCPCS: 80053; 84443; 85610

== ENCOUNTER 2024-02-29 00:32 | Outpatient (CLI) | payer BC, SELFPAY ==
--- NOTE | 2024-02-29 07:30 | DI.US_ITS ---
APPROVED REPORT EXAM: Comprehensive 2D, Doppler, and color-flow Echocardiogram Patient Location: Out-Patient [employer] Coach: Nicholas Arguello RDCS (AE) Indications: Bilateral lower extremity edema Other Information Study Quality: Technically Limited. Technically limited study due to body habitus. Conclusion Technically difficult study Normal left ventricular wall thickness chamber size and systolic function. Ejection fraction is 55 t o 60%. Wall motion appears normal Normal right ventricular size and function Both atria are normal in size There is no structural or hemodynamically significant valvular disease Wall motion Left Ventricle The left ventricle is normal size. The left ventricular systolic function is normal. The left ventric ular ejection fraction is within the normal range. There is normal left ventricular wall thickness. T here is normal LV segmental wall motion. There is no ventricular septal defect visualized. LVEF is 55 -60%. Right Ventricle The right ventricle is normal size. Right ventricular systolic function is grossly normal. Atria The left atrium size is normal. The right atrium size is normal. The interatrial septum is intact wit h no evidence for an atrial septal defect. Aortic Valve The aortic valve is normal in structure. Aortic valve is trileaflet. There is no aortic valvular nelson nosis. No aortic regurgitation is present. Mitral Valve The mitral valve is normal in structure. No evidence of mitral valve stenosis. There is no mitral zara ve regurgitation noted. Tricuspid Valve The tricuspid valve is normal in structure. There is no tricuspid valve stenosis. Trace tricuspid reg urgitation. Unable to assess PA pressure. Pulmonic Valve The pulmonary valve is normal in structure. There is no pulmonic valvular stenosis. There is no pulmo thai valvular regurgitation. Great Vessels The aortic root is normal in size. The ascending aorta is normal in size. Aortic arch is normal in ca liber. IVC is normal in size and collapses >50% with inspiration. Pericardium There is no pericardial effusion. 2D Dimensions IVSD d PLAX 0.78 cm M: 0.6-1.2 Ao Root d 2.72 cm M: 3.1 - 3.7 LVPW d PLAX 0.85 cm M: 0.6 - 1.2 Ao Asc Diam d 3.12 cm M: 2.6 - 3.4 LVID d PLAX 5.63 cm M: 4.2 - 5.8 LVDs 3.82 cm M: 2.5 - 4.0 LV EF Teichholz 59.7 % FS 32.17 % LV EDV (Teich) 155.5 mL LV ESV (Teich) 62.7 mL Stroke Vol Index (Teich) 38.69 M-Mode TAPSE 2.53 cm (M/F) >1.7 Auto EF LV EDV A4C 125.5 mL LV EDV A2C 152.2 mL LV EDV BP 138.2 mL LV ESV A4C 56.9 mL LV ESV A2C 67.9 mL LV ESV BP 62.4 mL LVEF(%) A4C 54.7 % LVEF(%) A2C 55.4 % LVEF(%) BP 54.8 % LV SV A4C 68.7 ml LV SV A2C 84.3 ml LV SV BP 75.8 ml LV CO A4C 6.0 L/min LV CO A2C 6.9 L/min LV CO BP 6.4 L/min HR A4C 86.95 BPM HR A2C 81.63 BPM LV EDV Index (BP) LA Volume LA Length A4C 4.3 cm LA Length A2C 4.5 cm LA Area A4C s 9.95 cm2 LA Area A2C s 11.74 cm2 LA Vol A4C A-L 19.63 mL LA Vol A2C A-L 25.99 mL LA Vol Biplane A-L 23.2 mL LA Vol/BSA A4C A-L LA Vol/BSA A2C A-L LA Vol/BSA BP A-L 9.6 mL/m2 LA Vol A4C MOD 18.8 mL LA Vol A2C MOD 24.7 mL LA Vol BP MOD 22.0 mL RA Volume RA Area A4C 9.0 cm2 RA ESV A4C (A-L) 20.9mL RA Vol/BSA A4C A-L RA Length A4C 3.3 cm RA ESV A4C (MOD) 19.3mL LV Diastology MV E' medial 0.116 (>0.07 m/s) MV E Vmax 0.54 (0.4-1.3 m/s) MV E/E' MED 4.65 (<14) MV A Vmax 0.85 (0.4-1.3 m/s) MV E' lateral 0.122 (>0.1 m/s) E/A Ratio 0.6 MV E/E' LAT 4.45 (<14) MV E' Average 0.119 m/s MV E/E'(average) 4.55 Aortic Valve AoV Vmax 1.43 m/s LVOT Vmax 1.17 m/s AoV Peak Grad 8.2 mmHg LVOT Peak Grad 5.5 mmHg AoV Area (Vmax) 2.29 cm2 LVOT VTI 0.223 m AoV VTI 0.253 m LVOT Mean Grad 3.0 mmHg AoV Mean Augusto. 0.99 m/s LVOT SV 62.65 mL AoV Mean Grad 4.5 mmHg LVOT Diam s 1.85 cm AoV Area (VTI) 2.48 cm2 AV Regurg Peak Gr. 8.19 mmHg Velocity Ratio 0.82 Pulmonary Valve PV Vmax 1.01 (0.5-1.5 m/s) RVOT Vmax 0.85 m/s PV Peak Grad 4.1 mmHg RVOT Peak Gr. 2.9 mmHg PV Mean Augusto 0.74 m/s RVOT VTI 0.152 m PV Mean Grad 2.4 mmHg RVOT Mean Gr. 1.7 mmHg
== END 2024-02-29 00:52 ==
LOC: DI 00:32
PROVIDERS: PCP Nurse Practitioner Family; Visit Provider Nurse Practitioner Family
DX: R60.0 Localized edema (principal)
CPT/HCPCS: 93306